=== PATIENT | female | born 1980 | race Caucasian/White ===

== ENCOUNTER 2024-05-28 12:57 | Outpatient (RCR) | payer OTHER, SELFPAY | END 2024-05-28 23:59 | disposition home or self-care (01) | LOC: RST 12:57 | PROVIDERS: ATTENDING PHYSICIAN Psychiatry & Neurology Neurology; FAMILY PHYSICIAN Family Medicine | DX: F07.81 Postconcussional syndrome (principal); R47.89 Other speech disturbances; R47.02 Dysphasia; R41.841 Cognitive communication deficit; R13.13 Dysphagia, pharyngeal phase | CPT/HCPCS: 92507; 92523; 92610 ==

== ENCOUNTER 2024-06-01 14:01 | Outpatient (RCR) | payer OTHER, SELFPAY | END 2024-06-01 23:59 | disposition home or self-care (01) | LOC: RST 14:01 | PROVIDERS: ATTENDING PHYSICIAN Psychiatry & Neurology Neurology; FAMILY PHYSICIAN Family Medicine | DX: R47.89 Other speech disturbances (principal); F07.81 Postconcussional syndrome; R47.02 Dysphasia; R41.841 Cognitive communication deficit | CPT/HCPCS: 92507 ==

== ENCOUNTER → 2024-06-11 08:20 | Outpatient (REF) | payer OTHER, SELFPAY | LOC: RST 08:20 | PROVIDERS: ATTENDING PHYSICIAN Family Medicine | DX: R13.10 Dysphagia, unspecified (principal) | CPT/HCPCS: 74230; 92611 ==

== ENCOUNTER 2024-07-16 06:56 | Outpatient (RCR) | payer OTHER, SELFPAY | END 2024-07-16 23:59 | disposition home or self-care (01) | LOC: RST 06:56 | PROVIDERS: ATTENDING PHYSICIAN Psychiatry & Neurology Neurology; FAMILY PHYSICIAN Family Medicine | DX: R47.89 Other speech disturbances (principal); F07.81 Postconcussional syndrome; R47.02 Dysphasia; R41.841 Cognitive communication deficit; R13.13 Dysphagia, pharyngeal phase | CPT/HCPCS: 92507; 92526 ==

== ENCOUNTER 2025-03-13 16:09 | Emergency (ER) | payer OTHER, SELFPAY ==
[2025-03-13 16:15] VITALS: BP 131/81
[2025-03-13 16:38] LABS: Hematocrit 39.4 % (37.0-47.0); Hemoglobin 13.9 g/dL (12.0-16.0); Mean Corp Hgb Conc. 35.3 g/dL (33.0-37.0); Mean Corpuscular Volume 89.3 fL (81.0-99.0); Nucleated Red Blood Cells % 0 %; Platelet Count 191 10^3/uL (130-400); Red Cell Dist. Width 11.8 % (11.5-14.5)
[2025-03-13 16:57] LABS: HCG, Serum Qualitative Screen Negative
[2025-03-13 17:04] LABS: ALT (SGPT) 24 U/L (0-35); AST (SGOT) 18 U/L (14-36); Albumin 5.1 g/dl (3.5-5.0); Alkaline Phosphatase 23 U/L (38-126); Blood Urea Nitrogen 12 mg/dl (7-17); Calcium 9.6 mg/dl (8.4-10.2); Carbon Dioxide 25 mmol/L (22-30); Glucose 118 mg/dl (70-99); Lipase 64 U/L (23-300); Total Protein 7.7 g/dl (6.3-8.2); eGFR > 60.00
[2025-03-13 17:12] LABS: Chloride 108 mmol/L (98-107); Potassium 3.9 mmol/L (3.5-5.1); Sodium 140 mmol/L (135-145)
[2025-03-13] MEDS: REGLAN 10 MG IV (18:50)
[2025-03-13] MEDS: BENADRYL 25 MG IV (18:50)
[2025-03-13] MEDS: OMNIPAQUE 50 ML PO (18:51)
[2025-03-13] MEDS: NSS 1000 IV (18:51)
--- NOTE | 2025-03-13 23:32 | ED.GENMED ---
History of Present Illness
General
Chief Complaint: Abdominal Symptoms
Source: patient
Time Seen by Provider: 03/13/25 17:42
History of Present Illness
History of Present Illness:
Note:
CHIEF COMPLAINT(S)
Recurrent vomiting and diarrhea, along with weight loss.
HISTORY OF PRESENT ILLNESS
The patient is a 45-year-old female presenting with recurrent vomiting and diarrhea since February 26. The symptoms initially started after the patient and her family experienced what was presumed to be a stomach virus. While her family member
recovered after one day of symptoms, the patients symptoms have persisted. The patient reported vomiting after eating certain foods, such as ice cream and water ice, which were consumed last night. She also described experiencing diffuse abdominal
pain, with some tenderness more localized to the upper abdomen. Alongside vomiting, the patient is also experiencing diarrhea multiple times a day, with some episodes revealing reddish coloration, likely due to the dye in food. She reported sweats,
particularly at night, although her fever status is uncertain, as the temperature was not consistently monitored. The patient has a history of esophageal issues that required a dilation procedure in August, and at the same time, she was diagnosed
with ulcers post-colonoscopy and was receiving iron infusions for low iron levels. The symptoms have resulted in noticeable weight loss, and the patient has been unable to consistently tolerate food.
ADDITIONAL HISTORY OBTAINED FROM SOURCES OTHER THAN THE PATIENT
Per the patients bellstaff, the patient has a history of requiring esophageal dilation after feeling as though she was choking when swallowing. They also mentioned that the patient underwent a colonoscopy in August, during which she was diagnosed
with ileus and ulcers. Infusions were administered during this period due to low iron levels.
CHRONIC MEDICAL CONDITIONS SIGNIFICANTLY AFFECTING CARE
The patient has a history of esophageal complications requiring dilation and low iron levels necessitating infusions.
PHYSICAL EXAM
General: Alert, oriented, no acute distress.
Skin: Warm, dry.
Head: Normocephalic, atraumatic.
Neck: Supple, trachea midline.
Eye, Ears, Nose, Mouth, and Throat: Oral mucosa moist.
Cardiovascular: Normal peripheral perfusion, No edema.
Respiratory: Respirations are non-labored.
Gastrointestinal: Mild epigastric tenderness on examination, hypoactive bowel sounds noted. Abdomen nondistended.
Back: Normal range of motion, normal alignment.
Musculoskeletal: Normal ROM, normal strength.
Neurological: Alert and oriented to person, place, time, and situation, no focal neurological deficit observed.
Psychiatric: Cooperative, appropriate mood & affect.
PLAN
1. The patient will undergo a computed tomography (CT) scan of the abdomen with oral contrast to evaluate potential causes for the ongoing symptoms, including possible motility disorders, gallbladder disease, obstruction, bowel inflammation, or
other structural issues.
2. Administration of Reglan (metoclopramide) and Benadryl to manage nausea and promote gastric motility.
3. Intravenous fluids will be provided to address dehydration.
4. Labs will be conducted to further assess the patient�s status, focusing on anemia given the history of low iron levels.
DIFFERENTIAL DIAGNOSIS
The Differential Diagnosis includes, in no particular order and is not limited to:
1. Gastroenteritis
2. Gastritis
3. Esophageal reflux disease
4. Gallbladder disease (e.g., cholecystitis)
5. Intestinal obstruction
6. Ileus
7. Ulcerative colitis
8. Irritable bowel syndrome
9. Iron deficiency anemia
10. Food intolerance or allergy
Disposition:
SUMMARY OF ENCOUNTER
The patient is a 45-year-old female who presented with persistent postprandial abdominal pain and vomiting that has lasted for several weeks, resulting in weight loss. Initially, the symptoms were attributed to an infectious cause as family members
experienced similar symptoms. Comprehensive workup including normal CBC, normal chemistries, liver function tests, and lipase levels, and her test was negative. A CT scan of the abdomen revealed decreased aorta mesenteric distance and
angle, raising suspicion for superior mesenteric artery (SMA) syndrome. Based on her weight loss and postprandial symptoms, this diagnosis is plausible.
DISPOSITION
The patient will be managed on an outpatient basis.
ASSESSMENT
The findings are suggestive of superior mesenteric artery syndrome.
MANAGEMENT OF THE PATIENTS CARE WAS DISCUSSED WITH
The case was discussed with lock stitch channeler Dr. Ma, who recommended outpatient management.
PLAN
The patient was advised to incorporate calorie-dense semisolid or liquid nutrition into her meals, such as milkshakes, protein shakes, or Ensure. Arrangements were made for follow-up with gastroenterology within one to two weeks.
INDEPENDENT REVIEW OF LABS AND INTERPRETATION OF TESTS
- My independent review of CBC is normal.
- My independent review of chemistries is normal, including liver function tests and lipase.
My independent interpretation of CT of the abdomen suggests decreased aorta mesenteric distance and angle, which is suspicious for superior mesenteric artery syndrome.
PATIENT EDUCATION AND COUNSELING
The patient was counseled on the potential diagnosis of superior mesenteric artery syndrome and advised on dietary modifications to manage symptoms, emphasizing the importance of a high-calorie diet.
FOLLOW-UP INSTRUCTIONS
The patient was advised to follow up with gastroenterology within one to two weeks.
MEDICAL DECISION MAKING
-Number and Complexity of Problems Addressed: Chronic conditions affecting care include esophageal complications and low iron levels. Differential diagnosis comprises gastroenteritis, gastritis, esophageal reflux disease, gallbladder disease,
intestinal obstruction, ileus, ulcerative colitis, irritable bowel syndrome, iron deficiency anemia, and food intolerance or allergy.
-Data:
Category 1
- Testing reviewed: normal CBC, normal chemistries, including normal liver function tests and lipase. Negative test.
- My independent interpretation of the CT of the abdomen suggests suspicion for superior mesenteric artery syndrome.
Category 2
- Clinical information was obtained from an independent historian. Per the patients bellstaff, the patient has a history of requiring esophageal dilation and underwent a colonoscopy.
Category 3
- Discussion of management with Dr. Ma (gastroenterology) regarding outpatient management.
-Risk:
Prescription medication was prescribed. A plan was made for follow-up with gastroenterology.
DIAGNOSIS
Suspected Superior Mesenteric Artery Syndrome (K56.89).
Phy Exam
Physical Exam
Physical Exam:
.
Course
Orders/Labs/Results
Orders:
Orders
03/13/25 16:19
Test Result ONCE
03/13/25 16:32
Complete Blood Count/With Diff Urgent
Comprehensive Metabolic Panel Urgent
HCG, Serum Qualitative Screen Urgent
Lipase Urgent
03/13/25 18:17
CT Abd/pel W Iv And Oral Contr Urgent
Comment:
Reason For Exam: mid abd pain, intractable vomiting
0.9% Sodium Chloride 1000 ml [Nss] 1,000 ml IV BOLUS
Diphenhydramine [Benadryl] 25 mg IV NOW STA
Iohexol [Omnipaque] See Protocol PO NOW STA
Metoclopramide [Reglan] 10 mg IV NOW STA
Abnormal Lab Results
03/13/25
16:32
MCH 31.5 H pg
(27.0-31.0)
MPV 11.4 H fL
(7.4-10.4)
Absolute Lymphs (auto) 0.9 L 10^3/uL
(1.2-3.4)
Neutrophils % 76.8 H %
(42.2-75.2)
Lymphocytes % 15.5 L %
(20.5-51.1)
Chloride 108 H mmol/L
(98-107)
Glucose 118 H mg/dl
(70-99)
Alkaline Phosphatase 23 L U/L
(38-126)
Albumin 5.1 H g/dl
(3.5-5.0)
03/13/25 16:32
03/13/25 16:32
Vital Signs
Initial and Last Documented VS:
Initial Vital Signs
Temp Pulse Resp BP Pulse Ox
98.6 F 69 18 131/81 100
03/13/25 16:15 03/13/25 16:15 03/13/25 16:15 03/13/25 16:15 03/13/25 16:15
Last Documented Vital Signs
Temp Pulse Resp BP Pulse Ox
98.6 F 69 18 131/81 100
03/13/25 16:15 03/13/25 16:15 03/13/25 16:15 03/13/25 16:15 03/13/25 16:15
*Pulse Oximetry
SaO2: 100
Oxygen Mode of Delivery: Room air
Patient hypoxic: no
*Critical Care Note
Total Time (30-74mins, 75-104mins- exclusive of procedures): Not Applicable
ED Attending Note
-
Portions of this chart may have been created with voice recognition software.� Occasional wrong word or��sound alike� substitutions may have occurred due to the inherent limitations of voice recognition software.
Discharge Plan
Departure
Patient Disposition: Home (Routine Discharge)
Date of Disposition: 03/13/25
Time of Disposition: 23:36
Patient with high blood pressure during this ER visit?: No
Discharge Problem:
Abdominal pain, Vomiting, Possible SMA syndrome
Instructions: Nausea and Vomiting, Adult (DC), Abdominal Pain
Referrals:
Gloria Griffith DO [Family Provider, Family Practice]
Thiago Ma MD [Active, Gastroenterology]
Activity Restrictions/Additional Instructions:
Possible SMA syndrome
Advance diet slowly as discussed. Consider milkshakes, protein shakes or boost in small doses at a time to gain weight. Please return immediately for intractable vomiting, bloody vomitus, bloody stool, worsening symptoms, fevers or any other
concerns. Please follow-up with your doctor and gastroenterology in the next 1 to 2 weeks.
Interventions
Interventions:
*Risk Screen - Suicide Last Done: 03/13/25 16:18
*General Assessment Last Done: 03/13/25 16:18
*Neglect/Abuse Screening Last Done: 03/13/25 16:18
*ED COVID-19 Vaccine History Last Done: 03/13/25 16:18
AP-Ceeqkv-Ggadhcgtvm Assessment Last Done: 03/13/25 18:00
Discharge Date and Time
Print Language: SETSWANA
[2025-03-13 23:43] VITALS: BP 122/61
== END 2025-03-13 23:48 | disposition home or self-care (01) ==
LOC: EMR 16:09
PROVIDERS: Emergency Medicine; EMERGENCY PHYSICIAN Emergency Medicine; FAMILY PHYSICIAN Family Medicine
DX: R11.2 Nausea with vomiting, unspecified (principal); R19.7 Diarrhea, unspecified; R63.4 Abnormal weight loss
CPT/HCPCS: 99284; 96374; 96375; 96361; 74177; 80053; 83690; 84703; 85025; Q9967

== ENCOUNTER → 2025-03-29 10:13 | Outpatient (REF) | payer OTHER, SELFPAY | LOC: RAD 10:13 | PROVIDERS: ATTENDING PHYSICIAN Student in an Organized Health Care Education/Training Program | DX: R10.84 Generalized abdominal pain (principal); R93.5 Abnormal findings on diagnostic imaging of other abdominal regions, including retroperitoneum | CPT/HCPCS: 74246; 74248 ==

== ENCOUNTER → 2025-05-18 10:56 | Outpatient (REF) | payer OTHER, SELFPAY | LOC: DHSLP 10:56 | PROVIDERS: ATTENDING PHYSICIAN Internal Medicine Critical Care Medicine | DX: G47.19 Other hypersomnia (principal); R06.83 Snoring | CPT/HCPCS: 95810 ==

== ENCOUNTER → 2025-05-19 07:00 | Outpatient (REF) | payer OTHER, SELFPAY | LOC: DHSLP 07:00 | PROVIDERS: ATTENDING PHYSICIAN Internal Medicine Critical Care Medicine | DX: G47.19 Other hypersomnia (principal) | CPT/HCPCS: 95805 ==